=== PATIENT | male | born 1960 | race Caucasian/White ===

== ENCOUNTER 2017-06-06 13:10 | Emergency (ER) | payer MEDICAID, OTHER ==
[~2017-06-06] VITALS: Ht 177.8 cm; Wt 66.0 kg
[~2017-06-06 13:10] MED LIST: IMOD2TAB PO; ZOFR4TAB3 SL
[2017-06-06 13:16] VITALS: BP 143/93; PULSE 79; RESP 16; TEMP 98.2; O2SAT 98
[2017-06-06] MEDS ORDERED: LITH300C2 PO (14:33)
[2017-06-06] MEDS ORDERED: TRAZ50TA12 PO (14:33)
--- NOTE | 2017-06-06 16:05 | PD ---
HPI Chief Complaint: Injury Time Seen by Provider: 14:38 Travel History International Travel<30 days: No Contact w/Intl Traveler<30days: No Traveled to known affect area: No History of Present Illness HPI 56-year-old male here with left heel, left ankle, left knee, low back pain after he fell from approximately 15 feet off a ladder landing onto his feet yesterday. He reports he made impact first on his feet and then fell to the side. No head injury or loss of consciousness. No neck pain, chest pain, shortness of breath, abdominal pain. Pain is worse with weightbearing and range of motion and relieved with rest. Symptom severity is moderate. PFSH Past Medical History Medical History: Denies Significant Hx Diminished Hearing: No GERD: Yes Hypertension: Yes Influenza Vaccination: Yes ?: Not Past Surgical History Abdominal Surgery: Yes (HAKEEM HERNIA) Social History Alcohol Use: Yes Tobacco Use: Yes Substance Use: No Allergies-Medications (Allergen,Severity, Reaction): Coded Allergies: No Known Allergies (Unverified Adverse Reaction, Unknown, 06/06/17) Reported Meds & Prescriptions Reported Meds & Active Scripts Active Ibuprofen 800 Mg Tab 800 Mg PO Q6HR PRN Reported Trazodone (Trazodone HCl) 50 Mg Tab 0 PO HS [place] Carbonate 300 Mg Cap 0 PO TID Review of Systems Except as stated in HPI: all other systems reviewed are Neg Physical Exam Narrative GENERAL: Alert well-appearing 56-year-old male SKIN: Warm and dry. HEAD: Atraumatic. Normocephalic. EYES: Pupils equal and round. EOMs intact. No injection or drainage. ENT: No nasal bleeding or discharge. Mucous membranes pink and moist. No facial bone tenderness NECK: Trachea midline. No cervical midline tenderness CARDIOVASCULAR: Regular rate and rhythm. No chest wall tenderness RESPIRATORY: No accessory muscle use. Clear to auscultation. Breath sounds equal bilaterally. Even and equal chest rise. GASTROINTESTINAL: Abdomen soft, non-tender, nondistended. MUSCULOSKELETAL: Extremities without clubbing, cyanosis, or edema. No obvious deformities. Left lower extremity:+TTP heel, lateral malleolus, lateral knee. No obvious deformity. 2+ distal pulses. Normal sensation. Brisk cap refill. BACK: No CVA tenderness. No rash. +TTP lumbar spine. No step-off deformity. NEUROLOGICAL: Awake and alert. No obvious cranial nerve deficits. Motor grossly within normal limits. Five out of 5 muscle strength in the arms and legs. PSYCHIATRIC: Appropriate mood and affect; insight and judgment normal. Data Data Last Documented VS Vital Signs Date Time Temp Pulse Resp B/P (MAP) Pulse Ox O2 Delivery O2 Flow Rate FiO2 06/06/17 13:16 98.2 79 16 143/93 (110) 98 Room Air Orders Orders Foot, Heel Only ([id number]) (06/06/17 ) Ankle, Complete ([id number]) (06/06/17 ) Knee, Complete (4vws) (06/06/17 ) Spine, Lumbar - Ltd (Ap & Lat) (06/06/17 ) Ed Discharge Order (06/06/17 17:27) Emir Bandage (06/06/17 17:28) MDM Medical Decision Making Medical Screen Exam Complete: Yes Emergency Medical Condition: Yes Differential Diagnosis Calcaneus fracture, ankle fracture, lumbar fracture, contusion, sprain Narrative Course To 6-year-old male here with multiple injuries after a fall from a ladder. He has a normal neurologic exam. His extremities are neurovascularly intact. X- rays are negative for fracture. Diagnosis Primary Impression: Ankle sprain Qualified Codes: S93.402A - Sprain of unspecified ligament of left ankle, initial encounter Additional Impressions: Lumbar strain Qualified Codes: S39.012A - Strain of muscle, fascia and tendon of lower back , initial encounter Knee strain Qualified Codes: S86.912A - Strain of unspecified muscle(s) and tendon(s) at lower leg level, left leg, initial encounter Referrals: Primary Care Physician Additional Instructions: Ice and elevate the extremities. Emir wrap as directed Ibuprofen as needed for pain. Scripts Cyclobenzaprine (Flexeril) 10 Mg Tab 10 MG PO TID for Muscle Spasm, #12 TAB 0 Refills Prov: Jina Bello 06/06/17 Ibuprofen (Ibuprofen) 800 Mg Tab 800 MG PO Q6HR Y for PAIN, #40 TAB 0 Refills Prov: Jina Bello 06/06/17 Disposition: 01 DISCHARGE HOME Condition: Stable Jina Bello Jun 06, 2017 16:05
--- NOTE | 2017-06-06 17:18 | RADRPT ---
EXAM DATE/TIME: 06/06/2017 15:41 [facility] COMPARISON: No previous studies available for comparison. INDICATIONS : Pain post fall. MEDICAL HISTORY : None. SURGICAL HISTORY : None. ENCOUNTER: Initial ACUITY: 1 day PAIN SCORE: 8/10 LOCATION: Left Ankle. FINDINGS: Three view exam was performed of the left ankle. The bony structures are in normal alignment. No ev idence of fracture, dislocation, or soft tissue swelling. The ankle mortise is intact. No radiopaqu e foreign bodies are seen. Bony mineralization is normal. CONCLUSION: No acute disease. Maik Dunn MD on June 06, 2017 at 17:15 Board Certified Radiologist. This report was verified electronically.
--- NOTE | 2017-06-06 17:18 | RADRPT ---
EXAM DATE/TIME: 06/06/2017 15:41 [facility] COMPARISON: No previous studies available for comparison. INDICATIONS : Pain post fall. MEDICAL HISTORY : None. SURGICAL HISTORY : None. ENCOUNTER: Initial ACUITY: 1 day PAIN SCORE: 8/10 LOCATION: Left Knee FINDINGS: Four view examination of the left knee demonstrates no evidence of fracture or dislocation. Bony min eralization is normal. The articular surfaces are intact. The suprapatellar soft tissues have a nor mal configuration. CONCLUSION: No acute disease. Maik Dunn MD on June 06, 2017 at 17:16 Board Certified Radiologist. This report was verified electronically.
--- NOTE | 2017-06-06 17:18 | RADRPT ---
EXAM DATE/TIME: 06/06/2017 15:41 [facility] COMPARISON: No previous studies available for comparison. INDICATIONS : Pain post fall. MEDICAL HISTORY : None. SURGICAL HISTORY : None. ENCOUNTER: Initial ACUITY: 1 day PAIN SCORE: 8/10 LOCATION: Left Heel. FINDINGS: Two view examination of the left heel demonstrates the trabecula to be intact with no evidence of fra cture. There is a normal calcaneal angle. The soft tissues are of normal thickness. CONCLUSION: No acute disease. Maik Dunn MD on June 06, 2017 at 17:15 Board Certified Radiologist. This report was verified electronically.
--- NOTE | 2017-06-06 17:21 | RADRPT ---
EXAM DATE/TIME: 06/06/2017 15:41 [facility] COMPARISON: CT ABDOMEN & PELVIS W CONTRAST, December 30, 2015, 21:10. INDICATIONS : Pain post fall. MEDICAL HISTORY : None. SURGICAL HISTORY : None. ENCOUNTER: Initial ACUITY: 1 day PAIN SCORE: 8/10 LOCATION: Lower back. FINDINGS: Two view examination was performed. There are five non-rib bearing vertebral bodies. The vertebral bodies are in normal alignment without evidence of subluxation or scoliosis. There is disc space polly rowing at the L5-S1 level. Mild marginal osteophytes are seen. There is focal sclerosis at the superi or aspect of the left sacroiliac joint. This was present on a prior CT examination. Hernia mesh and c lips are seen over the left lower pelvis and inguinal region. CONCLUSION: Chronic change at the L5-S1 level and the superior left sacroiliac region. These findings were presen t on a prior CT examination from 2015. Maik Dunn MD on June 06, 2017 at 17:16 Board Certified Radiologist. This report was verified electronically.
[2017-06-06] MEDS ORDERED: IBUP1TAB7 PO (17:24)
[2017-06-06] MEDS ORDERED: CYCL10TA PO (17:31)
== END 2017-06-06 17:46 | disposition home or self-care (01) ==
LOC: PHED 13:10 → PHEFT 17:46
DX: S93.402A Sprain of unspecified ligament of left ankle, initial encounter (principal); S39.012A Strain of muscle, fascia and tendon of lower back, initial encounter; S86.919A Strain of unspecified muscle(s) and tendon(s) at lower leg level, unspecified leg, initial encounter; W11.XXXA Fall on and from ladder, initial encounter
CPT/HCPCS: 72100; 73564; 73610; 73650; 99284